=== PATIENT | male | born 1960 | race Two or more races ===

== ENCOUNTER 2024-06-26 05:19 | Emergency (ER) | payer OTHER, SELFPAY ==
[2024-06-26 05:28] VITALS: BP 153/81; PULSE 79; RESP 17; TEMP 36.9; O2SAT 94; BMI 28.2
[2024-06-26 06:53] LABS: Influenza A PCR POSITIVE (Negative); Influenza B PCR NEGATIVE (Negative); Resp Syncy Virus RNA Qual PCR NEGATIVE (Negative); SARS COV2 PCR INHOUSE NEGATIVE (Negative)
--- NOTE | 2024-06-26 08:51 | ED.URI ---
HPI - URI/Sore Throat General Chief Complaint: Upper Respiratory Symptoms Stated Complaint: resp symptoms Time Seen by Provider: 06/26/24 08:25 Source: patient and old records reviewed Mode of arrival: ambulatory Limitations: no limitations History of Present Illness ED Provider: GEOVANI OLMSTEAD Narrative: 64 yo male with PMH of HTN, HLD, DM here with c/o note feeling well with cough, body aches, chills for 2 to 3 days - his partner has same illness. He denies chest pain/dyspnea. He is able to eat and drink without issue. He is otherwise feeling fine MD elicited complaint: cough and rhinorrhea Onset (ago): day(s) (3) Consistency: constant Severity: mild Description of mucous: clear Able to tolerate fluids by mouth: Yes Exacerbating factors: nothing Relieving factors: nothing Context: sick contacts Associated symptoms: chills, rhinorrhea and cough Treatments prior to arrival: none Related Data Allergies Allergy/AdvReac Type Severity Reaction Status Date / Time No Known Allergies Allergy Verified 06/26/24 05:30 Review of Systems Review of Systems: Constitutional : No Fever, pos Chills, pos Fatigue ENT/Mouth : No sore throat, No Rhinorrhea Eyes: No Eye Pain, No Swelling, No Redness Cardiovascular : No Chest Pain, No SOB, No Dyspnea on Exertion Respiratory : pos Cough, No Sputum Gastrointestinal : No Nausea, No Vomiting, No Diarrhea, No abdominal Pain Genitourinary : No Dysuria, No Urinary Frequency, No Hematuria, Musculoskeletal : No joint pain, pos Myalgias, No Joint Swelling Skin : No Skin Lesions, No rash Neuro : No Weakness, No Numbness, No Dizziness, no Headache All other systems reviewed and are negative [facility] Past Medical History Attestation statement: The following information was validated with the patient. Source: old records reviewed Medical History (Updated 06/26/24 @ 08:54 by Kathy León DO) Diabetes Hyperlipidemia HTN (hypertension) Social History Social History (Updated 06/26/24 @ 08:55 by Kathy León DO) Patient Tobacco Use Status: Never used Tobacco Physical Exam Vital Signs: Vital Signs: Last Vital Signs Temp 98.4 F 06/26/24 05:28 Pulse 79 06/26/24 05:28 Resp 17 06/26/24 05:28 BP 153/81 H 06/26/24 05:28 Pulse Ox 94 06/26/24 05:28 O2 Del Method Room Air 06/26/24 05:28 BMI result Body Mass Index 28.2 Appearance: Alert. Oriented X3. No acute distress. Eyes: Pupils equal, round and reactive to light. ENT: Pharynx normal. Neck: Normal inspection. Neck supple. CVS: Normal heart rate and rhythm. Pulses normal. Respiratory: No respiratory distress. Breath sounds normal. Abdomen: Soft and non-tender. Skin: Skin warm and dry. Normal skin color. Normal skin turgor. Extremities: No lower extremity edema. No calf ttp Neuro: Oriented X 3. No motor deficit. No sensory deficit. CN2-12 intact Medical Decision Making Medical Decision Making [facility] Narrative: 64 yo male with PMH of HTN, HLD, DM here with c/o URI symptoms for 2 to 3 days he is not toxic, VS stable, well appearing at this time will obtain viral panel and anticipate DC home - not a candidate for tamiflu out of 48 hour window. Differential Diagnosis Differential Diagnoses: The differential diagnosis associated with the presentation includes viral syndrome, URI Admission/Observation Consideration of admission/observation: Escalation of care including admission/observation considered stable VS, tolerating PO Lab Data [facility] Lab Attestation statement: I reviewed the patient's lab results. Labs: Lab Results 06/26/24 Range/Units 06:06 Influenza Type A (PCR) POSITIVE A (Negative) Influenza Type B (PCR) NEGATIVE (Negative) RSV RNA Qual (PCR) NEGATIVE (Negative) SARS-CoV-2 RNA (RT-PCR) NEGATIVE (Negative) Independent Historian Clinical information obtained from an independent historian. History obtained from or confirmed by: Spouse Prescription Management I considered prescription management with: Pain Medication and Antiviral Discharge Plan Discharge Clinical Impression: Influenza Patient Disposition: Home, Self-Care Instructions: Influenza (ED) Additional Instructions: return for any worsening symptoms or concerns such as difficulty walking, breathing, unable to eat or drink or any other concerns wear a mask and protect others Stand Alone Forms: Work/School Release Print Language: Mauritian
[2024-06-26 09:14] VITALS: BP 142/88; PULSE 84; RESP 16; TEMP 37.2; O2SAT 94
[2024-06-26 09:17] VITALS: BP 142/88; PULSE 84; RESP 16; TEMP 37.2; O2SAT 94
--- OUTSIDE RECORDS SUMMARY | 2024-06-26 09:30 | XMS_ITS | Clinical Summary ---
Author Organization [facility] [address] [place] [address] [place] [phone] Phone Care Team Providers Care Decorative Engraver Apprentice Name Role Phone Von Berger MD Primary Care Provider Allergies No known active allergies Medications cholecalcifero l (VITAMIN D-3) 50 mcg (2,000 unit) tablet Take 1 Tablet by mouth daily. 08/25/19 24 Active hydrocortisone 1 % topical cream Apply 1 Applicator topically 2 times daily. 03/04/20 22 Active lisinopriL (PRINIVIL,ZEST RIL) 10 mg tablet TAKE 1 TABLET BY MOUTH EVERY DAY 90 tablet 1 05/22/19 25 Active atorvastatin (LIPITOR) 20 mg tablet TAKE 1 TABLET BY MOUTH EVERY DAY 90 tablet 4 05/30/19 25 Active metFORMIN XR (GLUCOPHAGE-XR ) 500 mg 24 hr tablet Take 1 tablet (500 mg total) by mouth 1 (one) time each day with breakfast. 90 tablet 1 05/30/19 25 Active atorvastatin (LIPITOR) 20 mg tablet Take 1 Tablet by mouth daily. 02/24/20 23 025 Discontinued metFORMIN XR (GLUCOPHAGE-XR ) 500 mg 24 hr tablet TAKE 1 TABLET BY MOUTH EVERY DAY WITH BREAKFAST 02/21/20 24 025 Discontinued Active Problems Problem Noted Date Diagnosed Date Primary hypertension 08/25/2023 Subclinical hypothyroidism 02/24/2023 Overweight (BMI 25.0-29.9) 03/17/2020 Onychomycosis 06/14/2019 Prediabetes 01/16/2019 Mixed hyperlipidemia 10/03/2009 Erectile dysfunction 12/05/2006 Encounters Date Type Department Care Team Description 04/09/2024 4:00 PM EST Office Visit Adult Medicine [facility] [address] [place] [phone] Von Berger MD Physical exam (Primary Dx); Primary hypertension; Mixed hyperlipidemia; Prediabetes; Screening for prostate cancer; Multiple atypical skin moles from Last 3 Months Immunizations Name Administration Dates Next Due Td Tetanus diptheria (Tdvax) 7yo and older 10/02 Tdap Tetanus diptheria acell ular pertussis (Boostrix; Adacel) 7yo and older 12/05/2006 Surgical History Surgery Date Site/Laterality Comments CIRCUMCISION, PRIMARY 11/30/2009 PROCEDURE: HISTORICAL CIRCUMCISION MULTIPLE TOOTH EXTRACTIONS PROCEDURE: HISTORICAL DENTAL EXTRACTION COLONOSCOPY 08/16/11 PROCEDURE: HISTORICAL COLONOSCOPY; COMMENT: adenoma; repeat in 5 yrs COLONOSCOPY W/ POLYPECTOMY 10/12/2016 PROCEDURE: MN COLSC FLX W/RMVL OF TUMOR POLYP LESION SNARE TQ; COMMENT: adenomas; repeat in 3 yrs Medical History Medical History Date Comments 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 DX:I mpotence of organic origin Essential (primary) hypertension DX:Essential (primary) hypertension Prediabetes Hyperlipidemia Family History Medical History Relation Name Comments Lung cancer Father Diabetes Mother Coronary artery disease Neg Hx Relation Name Status Comments Father Mother Social History Tobacco Use Types Packs/Day Years Used Date Smoking Tobacco: Never Smokeless Tobacco: Never Tobacco Cessation:Counseling Given: Not Answered Alcohol Use Standard Drinks/Week Comments Yes 0 (1 standard drink = 0.6 oz pur e alcohol) social Sex and Gender Information Value Date Recorded Sex Assigned at Not on file Legal Sex Male 12:58 AM EST Gender Identity Not on file Sexual Orientation Not on file Obstetrics History Last Filed Vital Signs Vital Sign Reading Time Taken Comments Blood Pressure 142/86 04/09/2024 3:49 PM EST provider will recheck Pulse 78 04/09/2024 3:49 PM EST Temperature 36.5 ??C (97.7 ??F) 04/09/2024 3 :49 PM EST Respiratory Rate 18 04/09/2024 3:49 PM EST Oxygen Saturation - - Inhaled Oxygen Concentration - - Weight 79.4 kg (175 lb) 04/09/2024 3:49 PM EST Height 162.6 cm (5' 4 ) 04/09/2024 3:49 PM EST Body Mass Index 30.04 04/09/2024 3:49 PM EST Plan of Treatment Upcoming Encounters Date Type Department Care Team (Late st Contact Info) Description 10/08/2024 3:30 PM EDT Office Visit Adult Medicine [address] [phone] Von Berger MD [address] [place] [address] Health Maintenance Due Date Last Done Comments Pneumococcal Vaccine: 50+ Years (1 of 2 - PCV) 1980 Pneumococcal Vaccine: Pediatrics (0 to 5 Years) and At-Risk Patients (6 to 64 Years) (1 of 2 - PCV) 1980 Zoster Vaccines (1 of 2) 1980 COVID-19 Vaccine (3 - Pfizer risk series) 03/24/2021 02/24/2021, 02/03/2021 Depression Screening 04/23/2022 HIV Screening 04/23/2022 Social Influencers of Health Screening 04/23/2022 Influenza Vaccine (#1) 2024 Hypertension/CHF/CAD Annual BMP Blood Test 02/24/2024 02/23/2023 Colorectal Cancer Screening: Stool Based Tests (FOBT/FIT) 10/13/2024 DTaP,Tdap,and Td Vaccines (3 - Td or Tdap) 10/03/2027 10/02/2017, 12/05/2006 Cholesterol Screening (Lipid Panel) 02/24/2028 02/23/2023 RSV Immunization Patients 60 + Years Old (1 - 1-dose 75+ series) 2036 Colorectal Cancer Screening: Colonoscopy Discontinued 10/14/2019 Hepatitis C Screening Completed 03/25/2022 HIB Vaccines Aged Out No longer eligi ble based on patient's age to complete this topic HPV Vaccines Aged Out No longer eligi ble based on patient's age to complete this topic Hepatitis A Vaccines Aged Out No long er eligible based on patient's age to complete this topic Hepatitis B Vaccines Aged Out No long er eligible based on patient's age to complete this topic IPV Vaccines Aged Out No longer eligi ble based on patient's age to complete this topic MMR Vaccines Aged Out No longer eligi ble based on patient's age to complete this topic Meningococcal ACWY Vaccine Aged Out N o longer eligible based on patient's age to complete this topic Meningococcal B Vacine Aged Out No lo nger eligible based on patient's age to complete this topic RSV Immunization Patients Under 20 months Aged Out No longer eligible based on patient's age to complete this topic Varicella Vaccines Aged Out No longer eligible based on patient's age to complete this topic Procedures Procedure Name Priority Date/Time Associated Diagnosis Comments ANNUAL BMP BLOOD TEST Routine 02/23/2023 LIPID PANEL Routine 02/23/2023 HEPATITIS C SCREENING Routine 03/25/2022 COLONOSCOPY Routine 10/14/2019 from Last 3 Months or Most Recently Relevant to Health Maintenance Results * Annual BMP Blood Test (02/23/2023) [facility] Annual BMP Blood Test Abstracted Result [facility] Provider HEALTH MAINTENANCE Final Result * (ABNORMAL) Lipid panel (02/23/2023) [facility] LDL/HDL Ratio 4 0 - 4 Triglycerides 169(A) 0 - 150 mg/dL Cholesterol 224(A) 0 - 200 mg/dL HDL 59 >=40 mg/dL LDL Cholesterol 132(A) 0 - 100 mg/dL Blood Venous blood specimen / Unknown Result [facility] Provider LAB BLOOD ORDERABLES Sharla l Result * Hepatitis C Screening (03/25/2022) [facility] Hepatitis C Screening Abstracted [facility] Provider HEALTH MAINTENANCE Final Result * Colonoscopy (10/14/2019) [facility] Colonoscopy No Interpretation , Abstracted Anatomical Region Laterality Modality Other [facility] Provider HEALTH MAINTENANCE Final Result from Last 3 Months or Most Recently Relevant to Health Maintenance Insurance [employer] Care Teams Decorative Engraver Apprentice Relationship Specialty Start Date End Date Von Berger MD [address] [place] [address] PCP - General Internal Medicine 10/22/21
== END 2024-06-26 09:17 | disposition home or self-care (01) ==
PROVIDERS: Emergency Provider Emergency Medicine
DX: J10.1 Influenza due to other identified influenza virus with other respiratory manifestations (principal); R05.9 Cough, unspecified; M79.10 Myalgia, unspecified site; J34.89 Other specified disorders of nose and nasal sinuses; Z03.818 Encounter for observation for suspected exposure to other biological agents ruled out
CPT/HCPCS: 0241U; 99283